=== PATIENT | female | born 1980 | race Caucasian/White ===

== ENCOUNTER 2017-01-09 10:04 | Emergency (ER) | payer OTHER ==
[~2017-01-09] VITALS: Ht 162.6 cm; Wt 80.0 kg
[~2017-01-09 10:04] MED LIST: ALBU8I INH; AMOX500T PO; DUONSOL2 NEB; IBUP800T23 PO
[2017-01-09 10:07] VITALS: BP 139/70; PULSE 95; RESP 16; TEMP 98.4; O2SAT 98
[2017-01-09 10:10] VITALS: BP 144/68; PULSE 95; RESP 18; TEMP 98.1; O2SAT 99
[2017-01-09] MEDS ORDERED: ULTR50TA5 PO (10:34)
[2017-01-09] MEDS ORDERED: POLY10O EACH EYE (10:34)
--- NOTE | 2017-01-09 10:34 | PD ---
HPI Chief Complaint: Eye Problems/Injury Time Seen by Provider: 10:22 Travel History International Travel<30 days: No Contact w/Intl Traveler<30days: No Traveled to known affect area: No History of Present Illness HPI 36 years old female complaining of bilateral eye pain. Patient accidentally got some pencil cactus sap into both eyes this morning. Patient complains of burning pain in both eyes. Patient denies any other injury. PFSH Past Medical History ADHD: Yes Arthritis: No Asthma: Yes Autoimmune Disease: No Blood Disorders: No Anxiety: No Depression: No Heart Rhythm Problems: No Cancer: No Cardiovascular Problems: No High Cholesterol: No Chemotherapy: No Chest Pain: No Congestive Heart Failure: No COPD: No Cerebrovascular Accident: No Diabetes: No Diminished Hearing: No Endocrine: No GERD: No Glaucoma: No Genitourinary: No Headaches: No Hepatitis: No Hiatal Hernia: No Hypertension: No Immune Disorder: No Musculoskeletal: No Neurologic: No Psychiatric: No Reproductive: No Respiratory: No Migraines: No Myocardial Infarction: No Radiation Therapy: No Renal Failure: No Seizures: No Sickle Cell Disease: No Sleep Apnea: No Thyroid Disease: No Ulcer: No Tetanus Vaccination: > 5 Years Influenza Vaccination: No ?: Not LMP: 01/06/17 Past Surgical History Abdominal Surgery: No AICD: No Appendectomy: No Arteriovenous Shunt: No Cardiac Surgery: No Cholecystectomy: No Ear Surgery: No Endocrine Surgery: No Eye Surgery: No Genitourinary Surgery: No Gynecologic Surgery: No Insulin Pump: No Joint Replacement: No Oral Surgery: No Pacemaker: No Thoracic Surgery: No Tonsillectomy: Yes (& ADENOIDS CHILD) Other Surgery: Yes Social History Alcohol Use: No Tobacco Use: Yes (1 PPD) Substance Use: No Allergies-Medications (Allergen,Severity, Reaction): Coded Allergies: ferrous fumarate (Unverified Allergy, Severe, HYPOGLYCEMIA, 01/09/17) folic acid (Unverified Allergy, Severe, HYPOGLYCEMIA, 01/09/17) iron (Unverified Allergy, Severe, HYPOGLYCEMIA, 01/09/17) loratadine (Unverified Allergy, Severe, SHAKINESS, 01/09/17) multivit,therapeutic with iron,other mineral (Unverified Allergy, Severe, HYPOGLYCEMIA, 01/09/17) multivitamin (Unverified Allergy, Severe, HYPOGLYCEMIA, 01/09/17) multivitamin infusion, adult no.4 with vitamin K (Unverified Allergy, Severe, HYPOGLYCEMIA, 01/09/17) multivitamin with calcium and minerals (Unverified Allergy, Severe, HYPOGLYCEMIA, 01/09/17) multivitamin with iron,other minerals (Unverified Allergy, Severe, HYPOGLYCEMIA, 01/09/17) phytonadione (vitamin K1) (Unverified Allergy, Severe, HYPOGLYCEMIA, ) pseudoephedrine (Unverified Allergy, Severe, SHAKINESS, 01/09/17) Reported Meds & Prescriptions Reported Meds & Active Scripts Active Review of Systems General / Constitutional: No: Fever Eyes: Positive: Pain, No: Visual changes HENT: No: Headaches Cardiovascular: No: Chest Pain or Discomfort Respiratory: No: Shortness of Breath Gastrointestinal: No: Abdominal Pain Genitourinary: No: Dysuria Musculoskeletal: No: Pain Skin: No Rash Neurologic: No: Weakness Psychiatric: No: Depression Endocrine: No: Polydipsia Hematologic/Lymphatic: No: Easy Bruising Physical Exam Narrative GENERAL: Well-nourished, well-developed patient. SKIN: Focused skin assessment warm/dry. HEAD: Normocephalic. EYES: Both conjunctiva erythematous. Pupils 3 mm equal reactive. NECK: Supple, trachea midline. No JVD or lymphadenopathy. CARDIOVASCULAR: Regular rate and rhythm without murmurs, gallops, or rubs. RESPIRATORY: Breath sounds equal bilaterally. No accessory muscle use. GASTROINTESTINAL: Abdomen soft, non-tender, nondistended. MUSCULOSKELETAL: No cyanosis, or edema. BACK: Nontender without obvious deformity. No CVA tenderness. Data Data Last Documented VS Vital Signs Date Time Temp Pulse Resp B/P (MAP) Pulse Ox O2 Delivery O2 Flow Rate FiO2 01/09/17 10:14 74 18 01/09/17 10:10 98.1 144/68 (93) 99 MDM Medical Decision Making Medical Screen Exam Complete: Yes Emergency Medical Condition: Yes Differential Diagnosis Differential diagnosis including chemical burn, corneal abrasion, corneal ulcer. Narrative Course 36 years old female with pencil cactus sap exposure to both eyes. Both eyes were irrigated with 2 L of normal saline solution. Hernesto lens used. Diagnosis Primary Impression: Irritation of both eyes Additional Instructions: Polytrim ophthalmic solution as directed. 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 Return if worse. Med/Other Pt SpecificInfo: Prescription(s) given Scripts Tramadol (Ultram) 50 Mg Tab 50 MG PO Q6H Y for PAIN, #12 TAB 0 Refills Prov: Celestine Lambert MD 01/09/17 Polymyxin B-Trimethoprim Opth Drops (Polytrim Opth Drops) 10,000-0.1 Unit/Ml-% Soln 1 DROP EACH EYE Q6HR for Mgmt Bacterial Infection, #1 BOTTLE 0 Refills Prov: Celestine Lambert MD 01/09/17 Disposition: 01 DISCHARGE HOME Condition: Stable Celestine Lambert MD Jan 09, 2017 10:34
== END 2017-01-09 11:48 | disposition home or self-care (01) ==
LOC: NEPE 10:04
DX: H57.13 Ocular pain, bilateral (principal); F90.9 Attention-deficit hyperactivity disorder, unspecified type; J45.909 Unspecified asthma, uncomplicated; F17.200 Nicotine dependence, unspecified, uncomplicated
CPT/HCPCS: 99284

== ENCOUNTER 2017-04-28 16:53 | Emergency (ER) | payer OTHER ==
[~2017-04-28] VITALS: Ht 160 cm; Wt 68.0 kg
[~2017-04-28 16:53] MED LIST changes: -ALBU8I INH; -AMOX500T PO; -DUONSOL2 NEB; -IBUP800T23 PO; +POLY10O EACH EYE; +TRAM50 PO
[2017-04-28 16:54] VITALS: BP 126/73; PULSE 86; RESP 16; TEMP 99.1; O2SAT 99
[2017-04-28] MEDS ORDERED: VENTAER INH (18:25)
[2017-04-28] MEDS ORDERED: PRED10 PO (18:25)
[2017-04-28] MEDS ORDERED: AZIT250T3 PO (18:25)
--- NOTE | 2017-04-28 18:25 | PD ---
HPI Chief Complaint: Cold / Flu Symptoms Time Seen by Provider: 18:25 Travel History International Travel<30 days: No Contact w/Intl Traveler<30days: No Traveled to known affect area: No History of Present Illness HPI 36-year-old female presents to the emergency department with increased productive cough, chest congestion since Monday. Denies fever or chills. Denies shortness of breath or chest pain although she says that this is usually the start of a severe acute asthma exacerbation requiring admission. Says she wants to stop it before it gets bad. Says her Stepsister has been ill and likely contracted this upper respiratory infection from her. States she has not been using her inhalers because she has been out. She is not seeing her primary care physician regarding this. PFSH Past Medical History ADHD: Yes Arthritis: No Asthma: Yes Autoimmune Disease: No Blood Disorders: No Anxiety: No Depression: No Heart Rhythm Problems: No Cancer: No Cardiovascular Problems: No High Cholesterol: No Chemotherapy: No Chest Pain: No Congestive Heart Failure: No COPD: No Cerebrovascular Accident: No Diabetes: No Diminished Hearing: No Endocrine: No GERD: No Glaucoma: No Genitourinary: No Headaches: No Hepatitis: No Hiatal Hernia: No Hypertension: No Immune Disorder: No Musculoskeletal: No Neurologic: No Psychiatric: No Reproductive: No Respiratory: No Migraines: No Myocardial Infarction: No Radiation Therapy: No Renal Failure: No Seizures: No Sickle Cell Disease: No Sleep Apnea: No Thyroid Disease: No Ulcer: No ?: Not LMP: 04/19/17 Past Surgical History Abdominal Surgery: No AICD: No Appendectomy: No Arteriovenous Shunt: No Cardiac Surgery: No Cholecystectomy: No Ear Surgery: No Endocrine Surgery: No Eye Surgery: No Genitourinary Surgery: No Gynecologic Surgery: No Insulin Pump: No Joint Replacement: No Oral Surgery: No Pacemaker: No Thoracic Surgery: No Tonsillectomy: Yes (& ADENOIDS CHILD) Other Surgery: Yes Social History Alcohol Use: No Tobacco Use: Yes (1 PPD) Substance Use: No Allergies-Medications (Allergen,Severity, Reaction): Coded Allergies: ferrous fumarate (Unverified Allergy, Severe, HYPOGLYCEMIA, 04/28/17) folic acid (Unverified Allergy, Severe, HYPOGLYCEMIA, 04/28/17) iron (Unverified Allergy, Severe, HYPOGLYCEMIA, 04/28/17) loratadine (Unverified Allergy, Severe, SHAKINESS, 04/28/17) multivit,therapeutic with iron,other mineral (Unverified Allergy, Severe, HYPOGLYCEMIA, 04/28/17) multivitamin (Unverified Allergy, Severe, HYPOGLYCEMIA, 04/28/17) multivitamin infusion, adult no.4 with vitamin K (Unverified Allergy, Severe, HYPOGLYCEMIA, 04/28/17) multivitamin with calcium and minerals (Unverified Allergy, Severe, HYPOGLYCEMIA, 04/28/17) multivitamin with iron,other minerals (Unverified Allergy, Severe, HYPOGLYCEMIA, 04/28/17) phytonadione (vitamin K1) (Unverified Allergy, Severe, HYPOGLYCEMIA, 04/28) pseudoephedrine (Unverified Allergy, Severe, SHAKINESS, 04/28/17) Reported Meds & Prescriptions Reported Meds & Active Scripts Active Azithromycin 250 Mg Tab 250 Mg PO DIRECTED Take 2 tabs (500 mg) on day 1 then 1 tab daily x 4 days. Prednisone 10 Mg Tab 10 Mg PO DAILY 20 Days Ventolin Hfa 18 GM Inh (Albuterol Sulfate) 90 Mcg/Act Aer 2 Puff INH Q4-6H PRN Review of Systems Except as stated in HPI: all other systems reviewed are Neg Physical Exam Narrative GENERAL: Well-nourished, well-developed patient. SKIN: Focused skin assessment warm/dry. HEAD: Normocephalic. EYES: No scleral icterus. No injection or drainage. NECK: Supple, trachea midline. No JVD or lymphadenopathy. THROAT: No pharyngeal injection, exudates, or tonsillar hypertrophy. Airway is patent. CARDIOVASCULAR: Regular rate and rhythm without murmurs, gallops, or rubs. RESPIRATORY: Breath sounds equal bilaterally. No accessory muscle use. Wheezes with scant rhonchi. No rales MUSCULOSKELETAL: No cyanosis, or edema. BACK: Nontender without obvious deformity. No CVA tenderness. Data Data Last Documented VS Vital Signs Date Time Temp Pulse Resp B/P (MAP) Pulse Ox O2 Delivery O2 Flow Rate FiO2 04/28/17 16:54 99.1 86 16 126/73 (90) 99 Room Air Orders Orders Ed Discharge Order (04/28/17 18:26) MDM Medical Decision Making Medical Screen Exam Complete: Yes Emergency Medical Condition: Yes Differential Diagnosis Upper respiratory infection, asthma exacerbation, pneumonia Narrative Course 36-year-old female with a history of asthma presents to the emergency department with increased productive cough, chest congestion since Monday. Denies fever or chills. Denies shortness of breath or chest pain although she says that this is usually the start of a severe acute asthma exacerbation requiring admission. Says she wants to stop it before it gets bad. Says her Stepsister has been ill and likely contracted this upper respiratory infection from her. States she has not been using her inhalers because she has been out. She is not seeing her primary care physician regarding this. Vital signs stable. Physical exam findings consistent with an upper respiratory infection likely moving into an asthma exacerbation. Patient has had a sick contact. Solu-Medrol and DuoNeb administered in the emergency department. We discussed getting a chest x-ray however, this would not change my treatment so we'll avoid this for now. Because of patient's previous history, prescribed prednisone and azithromycin for outpatient use. Albuterol inhaler also prescribed. Advised to follow up primary care physician within 2-3 days. Return to the emergency room for worsening or persistent symptoms. Diagnosis Primary Impression: Asthma exacerbation Qualified Codes: J45.21 - Mild intermittent asthma with (acute) exacerbation Referrals: Primary Care Physician Additional Instructions: Take medications as prescribed. Follow up with your primary care physician within 2-3 days. If your symptoms persist or worsen, return to the emergency department. Scripts Azithromycin (Azithromycin) 250 Mg Tab 250 MG PO DIRECTED for Infection, #6 TAB 0 Refills Take 2 tabs (500 mg) on day 1 then 1 tab daily x 4 days. Prov: Valeria Serna 04/28/17 Prednisone (Prednisone) 10 Mg Tab 10 MG PO DAILY for 20 Days, #20 TAB 0 Refills Prov: Valeria Serna 04/28/17 Albuterol 18 GM Inh (Ventolin Hfa 18 GM Inh) 90 Mcg/Act Aer 2 PUFF INH Q4-6H Y for SHORTNESS OF BREATH, #1 INHALER 0 Refills Prov: Valeria Serna 04/28/17 Disposition: 01 DISCHARGE HOME Condition: Stable Valeria Serna Apr 28, 2017 18:25
== END 2017-04-28 18:51 | disposition home or self-care (01) ==
LOC: NEPK 16:53
DX: J45.901 Unspecified asthma with (acute) exacerbation (principal); F90.9 Attention-deficit hyperactivity disorder, unspecified type; F17.200 Nicotine dependence, unspecified, uncomplicated
CPT/HCPCS: 99284